=== PATIENT | female | born 1965 | race Caucasian/White ===

== ENCOUNTER 2017-06-21 09:29 | Emergency (ER) | payer MEDICARE, MEDICAID ==
[~2017-06-21] VITALS: Ht 160 cm; Wt 71.2 kg
[2017-06-21 09:33] VITALS: BP 136/75
[2017-06-21] MEDS ORDERED: CYCLOBENZAPRINE 10 MG TABLET PO STA (10:04)
[2017-06-21] MEDS ORDERED: IBUPROFEN 200 MG TABLET ONE (10:20)
[2017-06-21] MEDS ORDERED: CYCLOBENZAPRINE 10 MG TABLET ONE (10:20)
[2017-06-21] MEDS ORDERED: IBUPROFEN 200 MG TABLET PO ONE (10:30)
== END 2017-06-21 10:33 | disposition home or self-care (01) ==
LOC: ED 10:30
DX: S16.1XXA Strain of muscle, fascia and tendon at neck level, initial encounter (principal); H66.91 Otitis media, unspecified, right ear; J02.9 Acute pharyngitis, unspecified; W01.0XXA Fall on same level from slipping, tripping and stumbling without subsequent striking against object, initial encounter; Y93.89 Activity, other specified; Y92.89 Other specified places as the place of occurrence of the external cause; Y99.8 Other external cause status
CPT/HCPCS: 99283